=== PATIENT | female | born 1960 | race Caucasian/White ===

== ENCOUNTER 2016-08-28 10:58 | Emergency (ER) | payer MEDICARE, MEDICAID ==
[~2016-08-28] VITALS: Ht 165.1 cm; Wt 154.7 kg
[2016-08-28 13:09] VITALS: BP 149/82
== END 2016-08-28 13:09 | disposition home or self-care (01) ==
LOC: ED 10:58
DX: M25.561 Pain in right knee (principal); M19.90 Unspecified osteoarthritis, unspecified site; J45.909 Unspecified asthma, uncomplicated; Z87.891 Personal history of nicotine dependence
CPT/HCPCS: J1885

== ENCOUNTER 2016-09-24 13:38 | Inpatient (IN) | payer MEDICARE, MEDICAID ==
[~2016-09-24] VITALS: Ht 167.6 cm; Wt 153.3 kg
[2016-09-24 15:57] LABS: CALCIUM 9.8 mg/dL (8.5-10.1); CARBON DIOXIDE 29.2 mmol/L (21-32); CHLORIDE SERUM 105 mmol/L (98-107); CREATININE SERUM 0.7 mg/dL (0.6-1.0); GFR1 > 60 mL/min; GLUCOSE SERUM 95 mg/dL (74-106); POTASSIUM SERUM 4.3 mmol/L (3.5-5.1); SODIUM SERUM 143 mmol/L (136-145)
[2016-09-24 16:02] LABS: ALBUMIN 3.8 g/dL (3.4-5.0); ALKALINE PHOSPHATASE 217 U/L (46-116); ALT/SGPT 38 U/L (14-59); AST/SGOT 24 U/L (15-37); BILIRUBIN TOTAL 0.4 mg/dL (0.20-1.00); TOTAL PROTEIN, SERUM 7.5 g/dL (6.4-8.2)
[2016-09-24] MEDS ORDERED: DILANTIN100 MG PO (16:11)
[2016-09-24] MEDS ORDERED: HALOPERIDOL5 MG PO (16:12)
[2016-09-24] MEDS ORDERED: ZOLOFT25 MG PO (16:14)
[2016-09-24] MEDS ORDERED: DOCUSATE SODIUM (16:14)
[2016-09-24] MEDS ORDERED: ADVAIR DISKUS 51 AER INH (16:15)
[2016-09-24] MEDS ORDERED: NAPROXEN375 MG PO (16:15)
[2016-09-24] MEDS ORDERED: CLARITIN LIQUI-10 MG PO (16:15)
[2016-09-24] MEDS ORDERED: ADV200 PO (16:16)
[2016-09-24] MEDS ORDERED: ALBUTEROL0.63 MG/3 NEB (16:16)
[2016-09-24 16:24] LABS: BASOPHIL % 0 % (0-2)
[2016-09-24 16:25] LABS: PLATELET COUNT 545 x10^3mcL (130-400)
[2016-09-24 17:24] LABS: CHOLESTEROL/HDL RATIO 2.9; MAGNESIUM 2.1 mg/dL (1.8-2.4); PHOSPHOROUS 4.1 mg/dL (2.5-4.9)
[2016-09-24 17:28] VITALS: BP 142/69
[2016-09-24 17:32] LABS: T3 TOTAL 1.32 ng/mL
[2016-09-24 17:35] LABS: FREE T4 0.98 ng/dL (0.76-1.46); FREE THYROXINE INDEX 2.3 ug/dL (1.4-4.5); T4(THYROXINE) 7.8 ug/dL (4.7-13.3)
[2016-09-24 21:17] VITALS: BP 135/66
[2016-09-25 05:29] VITALS: BP 115/75
[2016-09-25 05:45] VITALS: Ht 167.6 cm; Wt 153.3 kg
[2016-09-25 06:06] LABS: BASOPHIL % 0.3 % (0-2); RED CELL DISTRIBUTION WIDTH 14.1 % (11.5-14.5)
[2016-09-25 06:29] LABS: CALCIUM 9.5 mg/dL (8.5-10.1); CARBON DIOXIDE 26.7 mmol/L (21-32); CHLORIDE SERUM 106 mmol/L (98-107); CREATININE SERUM 0.6 mg/dL (0.6-1.0); GFR1 > 60 mL/min; GLUCOSE SERUM 118 mg/dL (74-106); POTASSIUM SERUM 4.2 mmol/L (3.5-5.1); SODIUM SERUM 139 mmol/L (136-145)
[2016-09-25 06:30] LABS: ALBUMIN 3.1 g/dL (3.4-5.0)
[2016-09-25 06:47] LABS: PLATELET COUNT 499 x10^3mcL (130-400)
[2016-09-25 08:19] LABS: microscopic required? NO
[2016-09-25 08:27] LABS: urine erythrocyte NEGATIVE (NEGATIVE)
[2016-09-25 08:41] LABS: AMPHETAMINE QUAL UR NONE DETECTED (NEG <=1000)
[2016-09-25 09:08] VITALS: BP 136/78
[2016-09-25 13:04] VITALS: BP 111/87
[2016-09-25 15:44] VITALS: BP 111/87
[2016-09-25 16:33] VITALS: BP 118/63
== END 2016-09-25 17:48 | disposition left against medical advice (07) | DRG 606 ==
LOC: ED 13:38 → DU 15:35
PROVIDERS: Emergency Medicine; ADMIT Family Medicine
DX: L30.4 Erythema intertrigo (principal); E43 Unspecified severe protein-calorie malnutrition; L03.116 Cellulitis of left lower limb; D68.69 Other thrombophilia; Z68.43 Body mass index [BMI] 50.0-59.9, adult; F25.0 Schizoaffective disorder, bipolar type; E11.9 Type 2 diabetes mellitus without complications; B35.1 Tinea unguium; D47.3 Essential (hemorrhagic) thrombocythemia; E78.5 Hyperlipidemia, unspecified; J45.909 Unspecified asthma, uncomplicated; G40.909 Epilepsy, unspecified, not intractable, without status epilepticus; F17.210 Nicotine dependence, cigarettes, uncomplicated; E66.01 Morbid (severe) obesity due to excess calories
CPT/HCPCS: 80307; 82962; 83880; 84439; J1956; J2270; J2405; J3490; J7030; J7040; J7613; Q0092

== ENCOUNTER 2017-10-03 18:19 | Emergency (ER) | payer OTHER, MEDICAID ==
[~2017-10-03] VITALS: Ht 167.6 cm; Wt 130.6 kg
[~2017-10-03 18:19] MED LIST: ADV200 PO; ADVAIR DISKUS 51 AER INH; ALBUTEROL0.63 MG/3 NEB; CLARITIN LIQUI-10 MG PO; DILANTIN100 MG PO; DOCUSATE SODIUM; HALOPERIDOL5 MG PO; NAPROXEN375 MG PO; ZOLOFT25 MG PO
[2017-10-03 18:29] VITALS: Ht 167.6 cm; Wt 130.6 kg
[2017-10-03 19:52] VITALS: BP 108/60
== END 2017-10-03 19:52 | disposition home or self-care (01) ==
LOC: ED 18:19
DX: N12 Tubulo-interstitial nephritis, not specified as acute or chronic (principal); M79.1 Myalgia; I10 Essential (primary) hypertension; E11.9 Type 2 diabetes mellitus without complications; J45.909 Unspecified asthma, uncomplicated; F31.9 Bipolar disorder, unspecified; Z88.0 Allergy status to penicillin
CPT/HCPCS: 82962; J1885

== ENCOUNTER 2017-10-22 23:59 | Emergency (ER) | payer OTHER, MEDICAID ==
[~2017-10-22] VITALS: Ht 170.2 cm; Wt 129.7 kg
[2017-10-23 02:09] VITALS: BP 133/79
== END 2017-10-23 02:09 | disposition left against medical advice (07) ==
LOC: ED 23:59
DX: S80.02XA Contusion of left knee, initial encounter (principal); S80.01XA Contusion of right knee, initial encounter; R21 Rash and other nonspecific skin eruption; J45.909 Unspecified asthma, uncomplicated; I10 Essential (primary) hypertension; E11.9 Type 2 diabetes mellitus without complications; F20.9 Schizophrenia, unspecified; M19.90 Unspecified osteoarthritis, unspecified site; Z88.0 Allergy status to penicillin; W19.XXXA Unspecified fall, initial encounter; Y93.89 Activity, other specified; Y92.89 Other specified places as the place of occurrence of the external cause; Y99.8 Other external cause status

== ENCOUNTER 2017-11-10 15:35 | Emergency (ER) | payer OTHER, MEDICAID ==
[2017-11-10 17:44] VITALS: BP 132/79
== END 2017-11-10 18:31 | disposition home or self-care (01) ==
LOC: ED 15:35
DX: R07.89 Other chest pain (principal); G89.29 Other chronic pain; M54.5 Low back pain; M54.9 Dorsalgia, unspecified; R30.0 Dysuria; F17.210 Nicotine dependence, cigarettes, uncomplicated; I10 Essential (primary) hypertension; E11.9 Type 2 diabetes mellitus without complications; J45.909 Unspecified asthma, uncomplicated; M19.90 Unspecified osteoarthritis, unspecified site; F20.9 Schizophrenia, unspecified; Z88.0 Allergy status to penicillin
CPT/HCPCS: 99406; J7512; J7613

== ENCOUNTER 2018-12-17 08:18 | Emergency (ER) | payer OTHER ==
[~2018-12-17] VITALS: Ht 167.6 cm; Wt 92.5 kg
[2018-12-17 08:22] VITALS: Ht 167.6 cm; Wt 92.5 kg
[2018-12-17 09:14] LABS: CALCIUM 10.5 mg/dL (8.5-10.1); CARBON DIOXIDE 28.8 mmol/L (21-32); CHLORIDE SERUM 109 mmol/L (98-107); CREATININE SERUM 0.6 mg/dL (0.6-1.0); GFR1 > 60 mL/min; GLUCOSE SERUM 129 mg/dL (74-106); POTASSIUM SERUM 3.9 mmol/L (3.5-5.1); SODIUM SERUM 144 mmol/L (136-145)
[2018-12-17 09:30] VITALS: BP 133/68
== END 2018-12-17 09:56 | disposition home or self-care (01) ==
LOC: ED 08:18
PROVIDERS: Emergency Medicine
DX: G89.29 Other chronic pain (principal); M13.832 Other specified arthritis, left wrist; M13.831 Other specified arthritis, right wrist; M13.862 Other specified arthritis, left knee; M13.861 Other specified arthritis, right knee; M13.822 Other specified arthritis, left elbow; M13.821 Other specified arthritis, right elbow; J45.909 Unspecified asthma, uncomplicated; I10 Essential (primary) hypertension; F31.9 Bipolar disorder, unspecified; Z76.0 Encounter for issue of repeat prescription; Z88.0 Allergy status to penicillin; Z59.0 Homelessness
CPT/HCPCS: 36415; 82962; J1885